=== PATIENT | male | born 1940 | race African-American/Black ===

== ENCOUNTER 2020-08-26 19:15 | Inpatient (IN) | payer OTHER ==
[~2020-08-26] VITALS: Ht 175.3 cm; Wt 83.3 kg
[2020-08-27 05:57] LABS: Hematocrit 35.7 % (41.0-53.0); Hemoglobin 11.4 g/dL (13.5-17.5); Mean Corpuscular Hemoglobin 29.4 pg (28.0-32.0); Mean Corpuscular Hgb Conc. 31.8 g/dL (32.0-36.0); Mean Corpuscular Volume 92.4 fL (80.0-100.0); Platelet Count (auto) 277 10^3/uL (140-450); Red Blood Cells 3.86 10^6/uL (4.5-5.90); Red Cell Distribution Width 19.6 % (11.8-14.3); White Blood Cell 10.1 10^3/uL (4.4-10.8)
[2020-08-27 05:59] LABS: Basophils % (manual) 0 (0.0-2.0); Blast Cells 0; Eosinophils % (manual) 0 (0-7); Promyelocytes % 0; Reactive Lymphocytes 0
[2020-08-27 06:09] LABS: Calcium 9.2 mg/dL (8.5-10.1); Magnesium 2.8 mg/dL (1.6-2.6); Potassium 4.1 mmol/L (3.5-5.1)
[2020-08-27 06:12] LABS: INR 1.89 (0.9-1.15); Partial Thromboplastin Time 34.5 sec (23.0-31.2)
[2020-08-27 06:24] LABS: BUN/Creatinine Ratio 21.1; Bilirubin, Total 24.5 mg/dL (0.2-1.0); Total Protein 6.1 g/dL (6.4-8.2)
[2020-08-27] MEDS ORDERED: SODIUM CHLORIDE 0.9% 500 ML IV ONE (07:15)
[2020-08-27 09:57] LABS: Band Neutrophils % (manual) 8; Lymphocytes % (manual) 6 (10.0-50.0); Metamyelocytes % 1; Monocytes % (manual) 8 (0-12); Myelocytes % 1
[2020-08-27] MEDS ORDERED: SODIUM CHLORIDE 0.9% 1,000 ML IV ONE (14:15)
[2020-08-27] MEDS ORDERED: MORPHINE SULF INJ 2 MG/ML SYRINGE 1ML IV PRN (14:15)
[2020-08-27] MEDS ORDERED: DEXTROSE (50%) 50ML SYRG IV PRN (14:15)
[2020-08-27] MEDS ORDERED: NITROGLYCERIN 0.4 MG SL TAB SL PRN (14:15)
[2020-08-27] MEDS ORDERED: HEPARIN SODIUM (PORCINE) 5000 UNITS/ML 1ML VIAL IV ONE (15:08)
[2020-08-27 16:57] LABS: Hematocrit 35.1 % (41.0-53.0); Hemoglobin 11.3 g/dL (13.5-17.5); Mean Corpuscular Hemoglobin 29.5 pg (28.0-32.0); Mean Corpuscular Hgb Conc. 32.1 g/dL (32.0-36.0); Mean Corpuscular Volume 91.9 fL (80.0-100.0); Platelet Count (auto) 280 10^3/uL (140-450); Red Blood Cells 3.82 10^6/uL (4.5-5.90); Red Cell Distribution Width 19.2 % (11.8-14.3); White Blood Cell 10.6 10^3/uL (4.4-10.8)
[2020-08-27 17:12] LABS: INR 1.77 (0.9-1.15); Partial Thromboplastin Time 33.3 sec (23.0-31.2)
[2020-08-27 17:21] LABS: Basophils % (manual) 0 (0.0-2.0); Blast Cells 0; Eosinophils % (manual) 0 (0-7); Metamyelocytes % 0; Myelocytes % 0; Promyelocytes % 0; Reactive Lymphocytes 0
[2020-08-27] MEDS: HEPARIN DRIP/D5W 100UNITS/ML 250 ML IV SCH (17:27)
[2020-08-27] MEDS: ACCU-CHEK COMFORT CURVE STRIP VI SCH ×2 (17:38→22:10)
[2020-08-27] MEDS: InsuLIN REG 1unit/0.01ml Soln (100units/ml) SC SCH ×2 (17:38→22:11)
[2020-08-27 18:02] LABS: Band Neutrophils % (manual) 2; Lymphocytes % (manual) 8 (10.0-50.0); Monocytes % (manual) 4 (0-12)
[2020-08-27] MEDS: metroNIDAZOLE 500MG/100ML 100 ML IV SCH (22:12)
[2020-08-27] MEDS ORDERED: ASPirin 81 mg TAB PO ONE (23:00)
[2020-08-27] MEDS ORDERED: ATORVASTATIN 20 MG TAB PO ONE (23:00)
[2020-08-27] MEDS ORDERED: levoFLOXacin 250MG 50 ML IV ONE (23:15)
[2020-08-27] MEDS: PANTOPRAZOLE 40 MG/10 ML VIAL INJ IV SCH (23:44)
[2020-08-28 02:43] LABS: INR 2.2 (0.9-1.15)
[2020-08-28 02:48] LABS: Partial Thromboplastin Time 137.5 sec (23.0-31.2)
[2020-08-28 04:57] LABS: Hematocrit 31.1 % (41.0-53.0); Hemoglobin 10.3 g/dL (13.5-17.5); Mean Corpuscular Hemoglobin 30.2 pg (28.0-32.0); Mean Corpuscular Volume 91.5 fL (80.0-100.0); Platelet Count (auto) 258 10^3/uL (140-450); White Blood Cell 10.2 10^3/uL (4.4-10.8)
[2020-08-28 05:13] LABS: INR 1.89 (0.9-1.15)
[2020-08-28 05:14] LABS: Potassium 4.1 mmol/L (3.5-5.1)
[2020-08-28 05:15] LABS: Red Cell Distribution Width 20.1 % (11.8-14.3)
[2020-08-28 05:16] LABS: Band Neutrophils % (manual) 0; Basophils % (manual) 0 (0.0-2.0); Blast Cells 0; Eosinophils % (manual) 0 (0-7); Metamyelocytes % 0; Myelocytes % 0; Promyelocytes % 0; Reactive Lymphocytes 0
[2020-08-28 05:30] LABS: Albumin 1.8 g/dL (3.4-5.0); BUN/Creatinine Ratio 24.7; Bilirubin, Total 24.2 mg/dL (0.2-1.0); Total Protein 5.5 g/dL (6.4-8.2)
[2020-08-28] MEDS: ACCU-CHEK COMFORT CURVE STRIP VI SCH ×4 (06:05→21:38)
[2020-08-28] MEDS: metroNIDAZOLE 500MG/100ML 100 ML IV SCH ×3 (06:12→21:36)
[2020-08-28] MEDS: InsuLIN REG 1unit/0.01ml Soln (100units/ml) SC SCH ×3 (06:12→21:37)
[2020-08-28 06:57] LABS: Lymphocytes % (manual) 19 (10.0-50.0); Monocytes % (manual) 9 (0-12)
[2020-08-28 08:08] LABS: Acetaminophen < 2.0 ug/mL (10-30); Salicylate < 1.7 mg/dL (2.8-20.0)
[2020-08-28] MEDS: PANTOPRAZOLE 40 MG/10 ML VIAL INJ IV SCH (10:00)
[2020-08-28] MEDS ORDERED: ASPirin 81 mg TAB PO SCH (10:00)
[2020-08-28] MEDS ORDERED: cefTRIAXone 1GM/50ML D5W 50 ML IV SCH (10:00)
[2020-08-28] MEDS: levoFLOXacin 250MG 50 ML IV SCH ×2 (11:03→11:14)
[2020-08-28] MEDS ORDERED: SODIUM BICARBONATE 8.4 % INJ 50ML VIAL IV ONE (16:31)
[2020-08-28] MEDS: SODIUM BICARB 50ML SYR 75 ML in SOD CHL 0.45% 1,000 ML IV SCH (16:50)
[2020-08-28] MEDS: ATORVASTATIN 20 MG TAB PO SCH (21:37)
[2020-08-28] MEDS: HEPARIN DRIP/D5W 100UNITS/ML 250 ML IV SCH (23:00)
[2020-08-28 23:28] LABS: INR 1.67 (0.9-1.15)
[2020-08-29] MEDS ORDERED: SODIUM BICARBONATE 8.4% INJ 50ML SYRINGE ONE (00:57)
[2020-08-29] MEDS: SODIUM BICARB 50ML SYR 75 ML in SOD CHL 0.45% 1,000 ML IV SCH ×3 (01:01→23:30)
[2020-08-29 08:21] LABS: Hematocrit 25.3 % (41.0-53.0); Hemoglobin 8.5 g/dL (13.5-17.5); Mean Corpuscular Hemoglobin 30.7 pg (28.0-32.0); Mean Corpuscular Hgb Conc. 33.5 g/dL (32.0-36.0); Mean Corpuscular Volume 91.6 fL (80.0-100.0); Platelet Count (auto) 215 10^3/uL (140-450); Red Blood Cells 2.77 10^6/uL (4.5-5.90)
[2020-08-29 08:42] LABS: Albumin 1.8 g/dL (3.4-5.0); BUN/Creatinine Ratio 27.9; Bilirubin, Total 22.4 mg/dL (0.2-1.0); Total Protein 5.3 g/dL (6.4-8.2)
[2020-08-29 09:02] LABS: Basophils % (manual) 0 (0.0-2.0); Blast Cells 0; Eosinophils % (manual) 0 (0-7); Promyelocytes % 0; Reactive Lymphocytes 0
[2020-08-29 09:53] LABS: Folate (Folic Acid) 10.39 ng/mL (5.38-24)
[2020-08-29 10:33] LABS: Hepatitis B Surface Antibody Negative
[2020-08-29 11:12] LABS: Hepatitis A Total Antibody Negative
[2020-08-29 12:40] LABS: Band Neutrophils % (manual) 7; Lymphocytes % (manual) 11 (10.0-50.0); Metamyelocytes % 2; Monocytes % (manual) 8 (0-12); Myelocytes % 1
[2020-08-29 13:38] LABS: Hepatitis C Antibody Negative (Negative)
[2020-08-29 13:39] LABS: Hepatitis A Ab IgM Negative; Hepatitis B Core IgM Negative; Hepatitis B Core Total AB Negative; Hepatitis B Surface Antigen Negative (Negative)
[2020-08-29] MEDS: metroNIDAZOLE 500MG/100ML 100 ML IV SCH ×3 (14:00→21:42)
[2020-08-29 17:00] VITALS: BP 103/63
[2020-08-29] MEDS: InsuLIN REG 1unit/0.01ml Soln (100units/ml) SC SCH ×4 (17:02→22:00)
[2020-08-29] MEDS: ACCU-CHEK COMFORT CURVE STRIP VI SCH ×4 (17:02→23:17)
[2020-08-29] MEDS: PANTOPRAZOLE 40 MG/10 ML VIAL INJ IV SCH (17:17)
[2020-08-29] MEDS: HEPARIN DRIP/D5W 100UNITS/ML 250 ML IV SCH (17:33)
[2020-08-29 20:00] VITALS: BP 113/68
[2020-08-29] MEDS: ATORVASTATIN 20 MG TAB PO SCH (21:42)
[2020-08-29 22:00] VITALS: BP 113/68
[2020-08-30] MEDS: metroNIDAZOLE 500MG/100ML 100 ML IV SCH ×3 (06:53→22:34)
[2020-08-30 07:23] LABS: Hemoglobin 7.7 g/dL (13.5-17.5); Mean Corpuscular Volume 91.4 fL (80.0-100.0); White Blood Cell 12.1 10^3/uL (4.4-10.8)
[2020-08-30 07:30] LABS: Hematocrit 22.3 % (41.0-53.0); Mean Corpuscular Hemoglobin 31.5 pg (28.0-32.0); Mean Corpuscular Hgb Conc. 34.4 g/dL (32.0-36.0); Platelet Count (auto) 200 10^3/uL (140-450); Red Blood Cells 2.44 10^6/uL (4.5-5.90); Red Cell Distribution Width 18.8 % (11.8-14.3)
[2020-08-30] MEDS: InsuLIN REG 1unit/0.01ml Soln (100units/ml) SC SCH ×4 (07:34→22:00)
[2020-08-30] MEDS: ACCU-CHEK COMFORT CURVE STRIP VI SCH ×4 (07:40→22:35)
[2020-08-30 07:50] LABS: Basophils % (manual) 0 (0.0-2.0); Blast Cells 0; Eosinophils % (manual) 0 (0-7); Metamyelocytes % 0; Myelocytes % 0; Promyelocytes % 0; Reactive Lymphocytes 0
[2020-08-30 07:51] LABS: Albumin 1.9 g/dL (3.4-5.0); BUN/Creatinine Ratio 27.2; Bilirubin, Total 18.3 mg/dL (0.2-1.0); Calcium 8.6 mg/dL (8.5-10.1); Total Protein 5.1 g/dL (6.4-8.2)
[2020-08-30 09:00] VITALS: BP 133/63
[2020-08-30 09:01] LABS: Band Neutrophils % (manual) 1; Lymphocytes % (manual) 6 (10.0-50.0); Monocytes % (manual) 6 (0-12)
[2020-08-30] MEDS ORDERED: SODIUM BICARB 50ML SYR 75 ML in SOD CHL 0.45% 1,000 ML IV SCH (09:15)
[2020-08-30] MEDS: levoFLOXacin 250MG 50 ML IV SCH (09:31)
[2020-08-30] MEDS: PANTOPRAZOLE 40 MG/10 ML VIAL INJ IV SCH (09:32)
[2020-08-30 10:43] LABS: INR 2.24 (0.9-1.15)
[2020-08-30 10:46] LABS: Partial Thromboplastin Time 84.2 sec (23.0-31.2)
[2020-08-30] MEDS: SODIUM BICARBONATE 50ML VIAL 50 ML in SOD CHL 0.45% 1,000 ML IV SCH ×2 (11:43→18:09)
[2020-08-30] MEDS: phytonadione 10 MG in SODIUM CHL 0.9% 50 ML IV SCH (11:43)
[2020-08-30 13:00] VITALS: BP 131/82
[2020-08-30] MEDS: HEPARIN DRIP/D5W 100UNITS/ML 250 ML IV SCH (15:39)
[2020-08-30 16:14] LABS: INR 1.77 (0.9-1.15)
[2020-08-30 16:19] LABS: Partial Thromboplastin Time 107.8 sec (23.0-31.2)
[2020-08-30 17:00] VITALS: BP 122/83
[2020-08-30] MEDS ORDERED: LORazepam 2MG/ML-1ML VIAL IV PRN (19:30)
[2020-08-30 22:00] VITALS: BP 108/54
[2020-08-30] MEDS: ATORVASTATIN 20 MG TAB PO SCH (22:34)
[2020-08-30 22:57] LABS: Cholesterol 179 mg/dL (< 200); HDL Cholesterol 9 mg/dL (40-59); LDL Cholesterol 165 mg/dL (< 100); Triglycerides 218 mg/dL (< 150)
[2020-08-31] VITALS (9 sets, daily range): BP systolic 92–123; BP diastolic 46–58
[2020-08-31] MEDS: SODIUM BICARBONATE 50ML VIAL 50 ML in SOD CHL 0.45% 1,000 ML IV SCH (00:25)
[2020-08-31] MEDS: metroNIDAZOLE 500MG/100ML 100 ML IV SCH ×3 (06:30→22:26)
[2020-08-31] MEDS: ACCU-CHEK COMFORT CURVE STRIP VI SCH ×4 (06:35→22:27)
[2020-08-31] MEDS: InsuLIN REG 1unit/0.01ml Soln (100units/ml) SC SCH ×4 (06:35→22:00)
[2020-08-31 11:18] LABS: Hematocrit 20.2 % (41.0-53.0); Mean Corpuscular Hemoglobin 31.8 pg (28.0-32.0); Mean Corpuscular Hgb Conc. 34.9 g/dL (32.0-36.0); Mean Corpuscular Volume 91.1 fL (80.0-100.0); Platelet Count (auto) 187 10^3/uL (140-450); Red Blood Cells 2.21 10^6/uL (4.5-5.90); Red Cell Distribution Width 19.3 % (11.8-14.3); White Blood Cell 12.5 10^3/uL (4.4-10.8)
[2020-08-31] MEDS: phytonadione 10 MG in SODIUM CHL 0.9% 50 ML IV SCH (11:26)
[2020-08-31] MEDS: PANTOPRAZOLE 40 MG/10 ML VIAL INJ IV SCH (11:26)
[2020-08-31 11:36] LABS: Basophils % (manual) 0 (0.0-2.0); Blast Cells 0; Myelocytes % 0; Promyelocytes % 0; Reactive Lymphocytes 0
[2020-08-31 11:39] LABS: Potassium 3.2 mmol/L (3.5-5.1)
[2020-08-31 11:45] LABS: Albumin 1.7 g/dL (3.4-5.0); BUN/Creatinine Ratio 25.5; Bilirubin, Total 17.3 mg/dL (0.2-1.0); Calcium 8.2 mg/dL (8.5-10.1)
[2020-08-31 11:57] LABS: Total Protein 4.9 g/dL (6.4-8.2)
[2020-08-31] MEDS ORDERED: diphenhdrAMINE HCL 25 MG CAP PO PRN (13:00)
[2020-08-31 13:58] LABS: Band Neutrophils % (manual) 3; Eosinophils % (manual) 1 (0-7); Lymphocytes % (manual) 7 (10.0-50.0); Metamyelocytes % 1; Monocytes % (manual) 3 (0-12)
[2020-08-31] MEDS ORDERED: ACETAMINOPHEN 500 MG TAB PO ONE (14:00)
[2020-08-31 14:15] LABS: Urine Bacteria FEW /hpf (None Seen); Urine Blood 3+ /uL (Negative); Urine Hyaline Cast FEW /lpf (0 - 2); Urine Mucus FEW (None Seen); Urine Specific Gravity 1.011 (1.001-1.035); Urine WBC 17 /hpf (0 - 3); Urine WBC Clumps PRESENT /hpf (None Seen)
[2020-08-31 14:44] LABS: Creatinine, Urine 62 mg/dL (30.0-125.0); Sodium Urine 32 mmol/L (40-220)
[2020-08-31] MEDS: SODIUM BICARBONATE 50ML VIAL 100 ML in SOD CHL 0.45% 1,000 ML IV SCH ×2 (18:00→18:17)
[2020-08-31] MEDS: ATORVASTATIN 20 MG TAB PO SCH (22:27)
[2020-09-01 01:50] LABS: Hematocrit 26.7 % (41.0-53.0); Hemoglobin 9.1 g/dL (13.5-17.5)
[2020-09-01] MEDS: SODIUM BICARBONATE 50ML VIAL 100 ML in SOD CHL 0.45% 1,000 ML IV SCH ×2 (04:35→13:15)
[2020-09-01 05:00] VITALS: BP 103/58
[2020-09-01] MEDS: metroNIDAZOLE 500MG/100ML 100 ML IV SCH ×3 (06:22→22:05)
[2020-09-01] MEDS: InsuLIN REG 1unit/0.01ml Soln (100units/ml) SC SCH ×4 (06:55→22:03)
[2020-09-01] MEDS: ACCU-CHEK COMFORT CURVE STRIP VI SCH ×4 (06:55→22:05)
[2020-09-01 09:00] VITALS: BP_SYST 124; BP_SYST 86; BP_DIAS 41; BP_DIAS 74
[2020-09-01 09:18] LABS: Hematocrit 24.7 % (41.0-53.0); Hemoglobin 8.5 g/dL (13.5-17.5); Mean Corpuscular Hemoglobin 31.8 pg (28.0-32.0); Mean Corpuscular Hgb Conc. 34.4 g/dL (32.0-36.0); Mean Corpuscular Volume 92.4 fL (80.0-100.0); Platelet Count (auto) 186 10^3/uL (140-450); Red Blood Cells 2.67 10^6/uL (4.5-5.90); Red Cell Distribution Width 17.4 % (11.8-14.3); White Blood Cell 12.9 10^3/uL (4.4-10.8)
[2020-09-01 09:30] LABS: Albumin 1.8 g/dL (3.4-5.0); Band Neutrophils % (manual) 0; Basophils % (manual) 0 (0.0-2.0); Blast Cells 0; Calcium 7.9 mg/dL (8.5-10.1); Metamyelocytes % 0; Potassium 3.3 mmol/L (3.5-5.1); Promyelocytes % 0; Reactive Lymphocytes 0
[2020-09-01 09:32] LABS: BUN/Creatinine Ratio 24.5
[2020-09-01 09:43] LABS: Bilirubin, Total 16.8 mg/dL (0.2-1.0)
[2020-09-01] MEDS: DOPamine 1600MCG/ML D5W 250 ML IV SCH (09:45)
[2020-09-01 10:15] LABS: Eosinophils % (manual) 1 (0-7); Lymphocytes % (manual) 6 (10.0-50.0); Monocytes % (manual) 4 (0-12); Myelocytes % 1
[2020-09-01] MEDS: PANTOPRAZOLE 40 MG/10 ML VIAL INJ IV SCH (10:30)
[2020-09-01] MEDS: phytonadione 10 MG in SODIUM CHL 0.9% 50 ML IV SCH (10:50)
[2020-09-01] MEDS: levoFLOXacin 250MG 50 ML IV SCH (11:30)
[2020-09-01 13:00] VITALS: BP 86/41
[2020-09-01 15:09] LABS: INR 1.46 (0.9-1.15)
[2020-09-01 17:00] VITALS: BP 105/51
[2020-09-01 20:00] VITALS: BP 111/72
[2020-09-01] MEDS: ATORVASTATIN 20 MG TAB PO SCH (22:05)
[2020-09-02] MEDS: SODIUM BICARBONATE 50ML VIAL 100 ML in SOD CHL 0.45% 1,000 ML IV SCH ×2 (02:15→07:35)
[2020-09-02] MEDS: metroNIDAZOLE 500MG/100ML 100 ML IV SCH ×2 (05:41→20:00)
[2020-09-02] MEDS: InsuLIN REG 1unit/0.01ml Soln (100units/ml) SC SCH ×4 (06:59→22:38)
[2020-09-02] MEDS: ACCU-CHEK COMFORT CURVE STRIP VI SCH ×4 (06:59→22:32)
[2020-09-02 07:58] LABS: Hematocrit 22.4 % (41.0-53.0); Hemoglobin 7.5 g/dL (13.5-17.5); Mean Corpuscular Hemoglobin 31.3 pg (28.0-32.0); Mean Corpuscular Hgb Conc. 33.7 g/dL (32.0-36.0); Mean Corpuscular Volume 92.9 fL (80.0-100.0); Platelet Count (auto) 170 10^3/uL (140-450); Red Blood Cells 2.41 10^6/uL (4.5-5.90); Red Cell Distribution Width 17.6 % (11.8-14.3); White Blood Cell 14.4 10^3/uL (4.4-10.8)
[2020-09-02 08:00] LABS: Albumin 1.5 g/dL (3.4-5.0); Calcium 7.5 mg/dL (8.5-10.1)
[2020-09-02] MEDS ORDERED: IOHEXOL 300 MG/ML 100ML BOTTLE IJ ONE (08:01)
[2020-09-02 08:04] LABS: BUN/Creatinine Ratio 22.5; Bilirubin, Total 15.6 mg/dL (0.2-1.0); Total Protein 4.5 g/dL (6.4-8.2)
[2020-09-02 08:10] LABS: Potassium 2.8 mmol/L (3.5-5.1)
[2020-09-02 08:12] LABS: Band Neutrophils % (manual) 0; Basophils % (manual) 0 (0.0-2.0); Blast Cells 0; Eosinophils % (manual) 0 (0-7); Metamyelocytes % 0; Myelocytes % 0; Promyelocytes % 0; Reactive Lymphocytes 0
[2020-09-02] MEDS ORDERED: POTASSIUM CHL 20MEQ/100ML 100 ML IV ONE ×2 (08:19→10:37)
[2020-09-02 08:20] LABS: INR 1.23 (0.9-1.15)
[2020-09-02 08:31] LABS: Lymphocytes % (manual) 5 (10.0-50.0); Monocytes % (manual) 2 (0-12)
[2020-09-02] MEDS: DOPamine 1600MCG/ML D5W 250 ML IV SCH (09:45)
[2020-09-02] MEDS ORDERED: POTASSIUM CHLORIDE 80 MEQ, LIDOCAINE 1% (LOCAL ANESTH.) 6 ML in SODIUM CHL 0.9% 500 ML IV ONE (09:45)
[2020-09-02] MEDS ORDERED: BENZOCAINE (DENTAL) 20 % SPRAY 60ML MT ONE (10:33)
[2020-09-02] MEDS ORDERED: MEPERIDINE HCL (25 MG/ML) 1ML VIAL ONE (10:34)
[2020-09-02] MEDS ORDERED: fentaNYL CITRATE 100 MCG/2 ML VL ONE (10:34)
[2020-09-02] MEDS ORDERED: MIDAZOLAM HCL 1MG/1ML-2 ML VIAL ONE (10:34)
[2020-09-02] MEDS ORDERED: LABETALOL HCL 5 MG/ML 4ML SYRINGE IV PRN ×2 (10:45→12:15)
[2020-09-02] MEDS ORDERED: ePHEDrine SULFATE 50 MG/ML AMP IV PRN ×2 (10:45→12:15)
[2020-09-02] MEDS ORDERED: ONDANSETRON HCL 4 MG/2 ML VIAL IV PRN ×2 (10:45→12:15)
[2020-09-02] MEDS ORDERED: MORPHINE SULFATE 4 MG/ML SYR/VIAL IV PRN (10:45)
[2020-09-02] MEDS ORDERED: MIDAZOLAM HCL 1MG/1ML-2 ML VIAL IV PRN ×2 (10:45→12:15)
[2020-09-02] MEDS ORDERED: HYDROmorphone HCL 2 MG/ML VL IV PRN (10:45)
[2020-09-02] MEDS ORDERED: DexAMETHasone SOD PHOS 10MG/1ML VIAL INJ ONE (11:06)
[2020-09-02] MEDS ORDERED: METOCLOPRAMIDE HCL 5MG/ml INJ 2ml VIAL ONE (11:07)
[2020-09-02] MEDS ORDERED: PROPOFOL 10 MG/ML 20 ML IV ONE (11:07)
[2020-09-02] MEDS ORDERED: GLUCAGON HYDROCHLORIDE (RDNA) 1 MG VIAL ONE (11:09)
[2020-09-02] MEDS ORDERED: PHENYLEPHRINE HCL 10 MG/ML VL ONE (11:16)
[2020-09-02] MEDS ORDERED: fentaNYL CITRATE 100 MCG/2 ML VL IV PRN (12:15)
[2020-09-02] MEDS ORDERED: SODIUM BICARBONATE 8.4 % INJ 50ML VIAL IV ONE (14:15)
[2020-09-02] MEDS ORDERED: SODIUM CHLORIDE 0.9% 1,000 ML IV ONE ×2 (14:15→17:15)
[2020-09-02] MEDS: PANTOPRAZOLE 40 MG/10 ML VIAL INJ IV SCH (16:10)
[2020-09-02] MEDS ORDERED: SOD CHL 0.9%/ KCL 20MEQ 1,000 ML IV SCH (17:15)
[2020-09-02] MEDS ORDERED: AMIODARONE 450 MG/250 ML IV SCH (19:30)
[2020-09-02] MEDS ORDERED: AMIODARONE HCL 150 MG in D5W 5% 100 ML IV ONE (19:30)
[2020-09-02] MEDS: ATORVASTATIN 20 MG TAB PO SCH (22:32)
[2020-09-03] MEDS ORDERED: AMIODARONE 450mg/250ml AE 250 ML IV SCH (01:45)
[2020-09-03] MEDS: metroNIDAZOLE 500MG/100ML 100 ML IV SCH ×2 (04:00→12:20)
[2020-09-03] MEDS: ACCU-CHEK COMFORT CURVE STRIP VI SCH ×2 (06:43→12:17)
[2020-09-03] MEDS: InsuLIN REG 1unit/0.01ml Soln (100units/ml) SC SCH ×2 (06:45→12:19)
[2020-09-03 07:14] LABS: Mean Corpuscular Hgb Conc. 33.8 g/dL (32.0-36.0)
[2020-09-03 07:17] LABS: Hematocrit 24.4 % (41.0-53.0); Hemoglobin 8.2 g/dL (13.5-17.5); Mean Corpuscular Hemoglobin 31.4 pg (28.0-32.0); Platelet Count (auto) 175 10^3/uL (140-450); Red Blood Cells 2.62 10^6/uL (4.5-5.90); Red Cell Distribution Width 17.5 % (11.8-14.3); White Blood Cell 16.6 10^3/uL (4.4-10.8)
[2020-09-03 07:28] LABS: Band Neutrophils % (manual) 0; Basophils % (manual) 0 (0.0-2.0); Blast Cells 0; Eosinophils % (manual) 0 (0-7); Metamyelocytes % 0; Myelocytes % 0; Promyelocytes % 0; Reactive Lymphocytes 0
[2020-09-03 08:18] LABS: Lymphocytes % (manual) 2 (10.0-50.0); Monocytes % (manual) 3 (0-12)
[2020-09-03 08:39] VITALS: BP 105/56
[2020-09-03 09:00] LABS: Potassium 3.3 mmol/L (3.5-5.1)
[2020-09-03] MEDS ORDERED: AMIODARONE HCL 200 MG TAB PO ONE (09:30)
[2020-09-03] MEDS: levoFLOXacin 250MG 50 ML IV SCH (09:52)
[2020-09-03] MEDS: PANTOPRAZOLE 40 MG/10 ML VIAL INJ IV SCH (09:53)
[2020-09-03 10:00] LABS: Albumin 1.4 g/dL (3.4-5.0); BUN/Creatinine Ratio 20.4; Bilirubin, Total 14.9 mg/dL (0.2-1.0); Calcium 6.8 mg/dL (8.5-10.1); Total Protein 4.7 g/dL (6.4-8.2)
[2020-09-03] MEDS ORDERED: SOD CHL 0.45% 1,000 ML IV SCH (10:45)
[2020-09-03 13:00] VITALS: BP 111/83
[2020-09-03 13:43] VITALS: BP 111/83
== END 2020-09-03 14:30 | disposition hospice, home (50) | DRG 435 ==
LOC: ER 19:15 → OVERFLOW 19:16 → TELE-CENTR 08-29 16:37
PROVIDERS: ADMIT Internal Medicine; ATTEND Internal Medicine
PROC: 30233N1 Transfusion of Nonautologous Red Blood Cells into Peripheral Vein, Percutaneous Approach (ICD-10-PCS; principal; 2020-08-31)
PROC: 0FJB8ZZ Inspection of Hepatobiliary Duct, Via Natural or Artificial Opening Endoscopic (ICD-10-PCS; 2020-09-02)
PROC: BF101ZZ Fluoroscopy of Bile Ducts using Low Osmolar Contrast (ICD-10-PCS; 2020-09-02)
DX: C25.9 Malignant neoplasm of pancreas, unspecified (principal); J96.01 Acute respiratory failure with hypoxia; G93.40 Encephalopathy, unspecified; E87.2 Acidosis; N17.9 Acute kidney failure, unspecified; D68.9 Coagulation defect, unspecified; R79.89 Other specified abnormal findings of blood chemistry; N18.9 Chronic kidney disease, unspecified; E11.22 Type 2 diabetes mellitus with diabetic chronic kidney disease; F17.210 Nicotine dependence, cigarettes, uncomplicated; D64.9 Anemia, unspecified; E78.5 Hyperlipidemia, unspecified; E88.09 Other disorders of plasma-protein metabolism, not elsewhere classified; E87.8 Other disorders of electrolyte and fluid balance, not elsewhere classified; N20.0 Calculus of kidney; Z20.828 Contact with and (suspected) exposure to other viral communicable diseases; F10.10 Alcohol abuse, uncomplicated; G93.89 Other specified disorders of brain; I67.2 Cerebral atherosclerosis; K40.20 Bilateral inguinal hernia, without obstruction or gangrene, not specified as recurrent; K44.9 Diaphragmatic hernia without obstruction or gangrene; I12.9 Hypertensive chronic kidney disease with stage 1 through stage 4 chronic kidney disease, or unspecified chronic kidney disease; K57.30 Diverticulosis of large intestine without perforation or abscess without bleeding; K82.8 Other specified diseases of gallbladder; N28.1 Cyst of kidney, acquired; N40.0 Benign prostatic hyperplasia without lower urinary tract symptoms; Z51.5 Encounter for palliative care; Z88.0 Allergy status to penicillin; Z86.73 Personal history of transient ischemic attack (TIA), and cerebral infarction without residual deficits; Z85.46 Personal history of malignant neoplasm of prostate; Z79.4 Long term (current) use of insulin
CPT/HCPCS: 36415; 70450; 70551; 71045; 74176; 74181; 76000; 76705; 76775; 78226; 80053; 80061; 80329; 81001; 82140; 82378; 82570; 82607; 82728; 82746; 82962; 83605; 83735; 83880; 83935; 84300; 84443; 84484; 85007; 85014; 85018; 85027; 85610; 85730; 86141; 86301; 86704; 86705; 86706; 86708; 86709; 86803; 86850; 86900; 86901; 86920; 87040; 87086; 87340; 87426; 93005; 93306; 93886; 96360; 97110; 97530; 99291; C9113; G0378; J1100; J1815; J2001; J2250; J2704; J3430; J3480; J3490; J7060